=== PATIENT | female | born 1960 | race Caucasian/White ===

== ENCOUNTER 2017-06-08 18:59 | Emergency (ER) | payer OTHER ==
--- NOTE | 2017-06-08 19:34 | UC ---
Laceration HPI - HPI Summary HPI Summary: complaint of laceration on left index finger that occurred this evening was using garden bryon when she cut herself UTD on tetanus within 2 years - History Of Current Complaint Chief Complaint: UCLaceration Stated Complaint: LACERATION LEFT INDEX FINGER Time Seen by Provider: 06/08/17 19:28 Hx Obtained From: Patient - Allergies/Home Medications Allergies/Adverse Reactions: Allergies Allergy/AdvReac Type Severity Reaction Status Date / Time Sulfa Antibiotics Allergy Hives Verified 02/05/16 15:22 smoke Allergy Coughing Uncoded 06/08/17 19:12 Home Medications: Home Medications Ibuprofen TAB* [Motrin TAB* 600 MG] 600 mg PO Q12H PRN 06/08/17 [History Confirmed 06/08/17] Levothyroxine TAB* [Synthroid 137 MCG TAB*] 137 mcg PO DAILY 06/08/17 [History Confirmed 06/08/17] PMH/Surg Hx/FS Hx/Imm Hx Previously Healthy: Yes Endocrine History: Hypothyroidism - Surgical History Surgical History: Yes Surgery Procedure, Year, and Place: HERNIA REPAIR, T&A, RT FOOT BUNION REMOVAL, RT KNEE ARTHROSCOPY - Family History Known Family History: Negative: Cardiac Disease, Hypertension, Diabetes - Social History Occupation: Employed Full-time Lives: With Family Alcohol Use: Rare Substance Use Type: None Smoking Status (MU): Never Smoked Tobacco - Immunization History Most Recent Tetanus Shot: UTD, last may have been 2014 Review of Systems Constitutional: Negative Skin: Other - laceration Eyes: Negative ENT: Negative Respiratory: Negative Cardiovascular: Negative Gastrointestinal: Negative Genitourinary: Negative Motor: Negative Neurovascular: Negative Musculoskeletal: Negative Neurological: Negative Psychological: Negative All Other Systems Reviewed And Are Negative: Yes Physical Exam Triage Information Reviewed: Yes Appearance: No Pain Distress, Well-Nourished Vital Signs: Initial Vital Signs Temp 98.3 F 06/08/17 19:06 Pulse 60 06/08/17 19:06 Resp 18 06/08/17 19:06 BP 107/75 06/08/17 19:06 Vital Signs Reviewed: Yes Eyes: Positive: Conjunctiva Clear ENT: Positive: Pharynx normal, TMs normal Neck: Positive: No Lymphadenopathy Respiratory: Positive: Lungs clear, Normal breath sounds, No respiratory distress, No accessory muscle use Cardiovascular: Positive: RRR, No Murmur, Pulses Normal Musculoskeletal Exam: Normal Neurological: Positive: Alert Psychological Exam: Normal Skin Exam: Other - left index finger with laceration near tip of finger Laceration Repair - Laceration Repair 1 Description: Linear Laceration Size After Repair: Length (cm) - 5mm, Width (mm) - 1, Depth (mm) - 1 Modified For Repair: No Cleansing Completed Via Routine Prep: Yes Closure Material: SteriStrips Laceration Course/Dx - Differential Dx - Laceration/Wound Differental Diagnoses: Laceration Provider Diagnoses: laceration- left index finger Discharge - Discharge Plan Condition: Stable Disposition: HOME Prescriptions: Cephalexin CAP* [Keflex CAP*] 500 mg PO TID #21 cap Patient Education Materials: Kayleen (ED) Referrals: Uche Montejo NP [Primary Care Provider] - Additional Instructions: keep steri-strips in place until they fall off keep your finger clean and dry start antibiotic as directed Take acetaminophen or ibuprofen for fever or pain Please review your discharge instructions. If your symptoms do not improve please call your primary care provider or return to urgent care.
[2017-06-08 19:59] VITALS: BP 107/75
== END 2017-06-08 20:02 | disposition home or self-care (01) ==
LOC: UCCORT 18:59
DX: S61.211A Laceration without foreign body of left index finger without damage to nail, initial encounter (principal); W27.1XXA Contact with garden tool, initial encounter; Y93.9 Activity, unspecified; Y92.9 Unspecified place or not applicable; E03.9 Hypothyroidism, unspecified; Z88.2 Allergy status to sulfonamides
CPT/HCPCS: 99212; G0463

== ENCOUNTER 2019-02-18 05:42 | Day surgery (SDC) | payer OTHER ==
[~2019-02-18 05:42] MED LIST: Buffered Lidocaine 1% SYRIN* 1 ML/SYRINGE INTRADERM ONE
[2019-02-18] MEDS ORDERED: Lactated Ringers 1000 ML Bag* 1,000 ML IV SCH (06:00)
[2019-02-18] MEDS ORDERED: Famotidine IV* 10 MG/ML 2 ML (20 mg) IV ONE (06:00)
[2019-02-18] MEDS ORDERED: Bupivacaine 0.5%* 50 ML VIAL ONE (06:40)
[2019-02-18] MEDS ORDERED: ceFAZolin 2 GM in NS PREMIX(*) 2 GM/100 ML BAG IVPB ONE (06:45)
[2019-02-18] MEDS ORDERED: Famotidine IV* 10 MG/ML 2 ML (20 mg) ONE (06:45)
[2019-02-18] MEDS ORDERED: Ondansetron INJ* 2 MG/ML VIAL ONE (07:21)
[2019-02-18] MEDS ORDERED: Cisatracurium* 2 MG/ML MDV 5 ML ONE (07:21)
[2019-02-18] MEDS ORDERED: Dexamethasone IV* 4 MG/ML 1 ML (4 MG) ONE (07:21)
[2019-02-18] MEDS ORDERED: Propofol* 10 MG/ML 20 ML BTL ONE (07:21)
[2019-02-18] MEDS ORDERED: Lidocaine 2% PF * 5 ML VIAL ONE (07:21)
[2019-02-18] MEDS ORDERED: Ketorolac INJ* 30 MG/ML 1 ML VIAL ONE (07:21)
[2019-02-18] MEDS ORDERED: fentaNYL* 50 MCG/ML 2 ML VIAL (100 MCG VIAL) ONE (07:21)
[2019-02-18] MEDS ORDERED: Midazolam* 1 MG/ML 5 ML VIAL (5 MG) ONE (07:22)
[2019-02-18 07:32] LABS: Albumin/Globulin Ratio 1.9 (1-3); Globulin 2.1 g/dL (2-4); Indirect Bilirubin 0.4 mg/dL (0.3-1.0); Potassium 3.9 mmol/L (3.5-5.0); Total Bilirubin 0.5 mg/dL (0.2-1.0); Total Protein 6.1 g/dL (6.4-8.9)
[2019-02-18] MEDS ORDERED: EPHEDrine (Pressors)* 50 MG/ML VIAL ONE (07:58)
[2019-02-18] MEDS ORDERED: Ondansetron ODT TAB* 4 MG PO PRN (08:41)
[2019-02-18] MEDS ORDERED: DiMENhydriNATE IV* 50 MG/ML VIAL IV PUSH PRN (08:41)
[2019-02-18] MEDS ORDERED: fentaNYL* 50 MCG/ML 2 ML VIAL (100 MCG VIAL) IV PRN (08:41)
[2019-02-18] MEDS ORDERED: Naloxone* 0.4 MG/ML 1 ML VIAL IV PRN (08:41)
[2019-02-18] MEDS ORDERED: Neostigmine Methylsulfate* 1 MG/ML 10 ML VIAL (1 mg/ml) ONE (08:50)
[2019-02-18] MEDS ORDERED: Glycopyrrolate IV* 0.2 MG/ML 1 ML VIAL ONE (08:50)
[2019-02-18 10:49] VITALS: BP 99/62
--- NOTE | 2019-02-18 12:47 | OP ---
DATE OF OPERATION: 02/18/19 - [facility] DATE OF : 56 SURGEON: Mitchel Troy MD PRODUCTION CHECKER: Ban Murphy NP PRE-OP DIAGNOSIS: Left inguinal hernia. POST-OP DIAGNOSIS: Left inguinal hernia. OPERATIVE PROCEDURE: Laparoscopic left inguinal hernia, total extraperitoneal repair. INDICATIONS FOR PROCEDURE: Left inguinal hernia. Risks including, but not limited to bleeding, infection; injury to intraabdominal contents including the bowel, bladder, pelvic, nerves, vessels; recurrence of the hernia and others were explained to the patient who seemed to understand and agreed to the procedure. All questions were answered. DESCRIPTION OF PROCEDURE: The patient was taken to the operating room, placed supine. Preoperative antibiotics were given. After the successful induction of general endotracheal anesthesia, the abdomen was prepped and draped in sterile fashion. A time-out was performed, indicating correct patient and correct procedure. She was marked on her abdomen. Skin below the umbilicus was anesthetized with 0.5% Marcaine plain. An incision was made and carried down through the subcutaneous tissue exposing the anterior rectus fascia. A small incision was made exposing the rectus and the rectus was retracted laterally on the left. Posterior fascia was identified. A balloon dissector was placed, then along this tract towards the pubis, insufflated, opening up the preperitoneal space. A cannula was placed into the balloon as this was insufflated and good dissection was noted as the balloon was insufflated. There was no bleeding. Trocar was replaced through this incision, 12 mm and then two 5 mm midline trocars were placed in between this point and the pubis. This was after the balloon was removed. The balloon had done majority of this dissection, peritoneum easily came down exposing the hernia. A piece of ProGrip mesh was then passed through the 12 trocar and placed over the hernia site, across the midline and covering this superiorly and inferiorly. Once the mesh was noted to be in good position, the CO2 was released from the preperitoneal space. The midline fascia, anterior rectus was then reapproximated with an 0-Vicryl suture. The subcutaneous fascia was closed with Vicryl suture and the skin was closed with Monocryl and glue at all skin sites. The patient tolerated the procedure well, she was extubated and taken to recovery room in stable condition. [id number]/[facility] #: [id number] JOVANNY
== END 2019-02-18 10:57 | disposition home or self-care (01) ==
LOC: OR 05:42
PROVIDERS: ATTEND Surgery
DX: K40.90 Unilateral inguinal hernia, without obstruction or gangrene, not specified as recurrent (principal); E03.9 Hypothyroidism, unspecified; E67.3 Hypervitaminosis D; M81.0 Age-related osteoporosis without current pathological fracture; E88.01 Alpha-1-antitrypsin deficiency
CPT/HCPCS: 36415; 80076; 84132; C1781; J0690; J1100; J1885; J2250; J2405; J2704; J2710; J3010

== ENCOUNTER 2019-10-21 14:21 | Emergency (ER) | payer SELFPAY ==
--- OUTSIDE RECORDS SUMMARY | 2019-10-21 14:43 | XMS REPORT | Continuity of Care Document ---
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 Onset: 06/16/2017 Seasonal allergic rhinitis Uche Montejo, N.PJeremias Onset: 02/11/2019 Social History Type Date Description Comments Sex Unknown Tobacco Use Start: Unknown Never Smoked Cigarettes Tobacco Use Start: Unknown Patient has never smoked Smoking Status Reviewed: 02/15/19 Patient has never smoked Enjoy Exercising Enjoys Exercising Allergies, Adverse Reactions, Alerts Active Allergies Reaction Severity Comments Date Bactrim 06/08/2005 Fluconazole rash 09/13/2013 Demerol 08/17/2015 Inactive Allergies NKDA Medications Active Medications SIG Qnty Indications Ordering Provider Date Multi Vitamin Uche Montejo, 02/11/2019 Tablets N.P. Albuterol Sulfate HFA 2 puffs four 18gm Uche Montejo, 01/21/2019 times a day as N.P. 108(90Base) mcg/Act needed for wheeze Aerosol and cough Loratadine take one tablet 30tabs Uche Montejo, 10/10/2017 10mg Tablets by mouth every N.P. morning Spiriva Respimat 2 puffs every day 4gm Uche Montejo, 07/11/2017 N.P. 1.25mcg/Act Aerosol Synthroid take one tablet 90tabs Uche Montejo, 02/17/2014 137mcg by mouth every N.P. Tablets day on an empty stomach Foltia Lara, 08/07/2008 Tablets MD John Immunizations CPT Code Status Date Vaccine Reaction Lot # [id number] Given 08/01/2019 Influenza Vac, Quadrivalent, Split, 0.5mL Dosage, Im Use 46913 Given 08/01/2019 Influenza Vac, Quadrivalent, [id number] Split, 0.5mL Dosage, Im Use 93099 Given 07/31/2018 Influenza Vac, Quadrivalent, [id number] Split, 0.5mL Dosage, Im Use 53376 Given 07/18/2017 Influenza Vac, Quadrivalent, [id number] Split, 0.5mL Dosage, [place] Use 50777 Given 07/26/2016 Influenza Vac, Quadrivalent, COUNSELING ALL [id number] Split, 0.5mL Dosage, Im Use COMPONENTS COMPLETED 56615 Given 01/15/2016 Tdap (Adacel) Ages 7 And [id number] Above Only 35599 Given 08/06/2015 Influenza Vac, Quadrivalent, [id number] Split, 0.5mL Dosage, Im Use 53316 Given 02/09/2015 Hepatitis B Vaccine Adult [id number] Dosage 65116 Given 09/11/2014 Hepatitis B Vaccine Adult [id number] Dosage 39625 Given 08/11/2014 Hepatitis B Vaccine Adult [id number] Dosage 28353 Given 07/31/2014 Afluria Or Fluvirin Flu Vac [id number] Intramuscular Q2038 Given 08/06/2013 Fluzone Trivalent [id number] Immunization Q2038 Given 07/31/2012 Fluzone Trivalent [id number] Immunization Q2038 Given 08/09/2011 Fluzone Trivalent [id number] Immunization 76972 Given 08/09/2011 Pneumococcal 23 Immunization [id number] Adult Or Immunosuppressed Patient 77421 Given 08/03/2010 Afluria Or Fluvirin Flu Vac [id number] Intramuscular 30503 Given 11/18/2009 Influenza Virus Vaccine [id number] Pandemic Formulation - [id number] 40028 Given 11/18/2009 Administration Swine Flu Vaccine [id number] 46405 Given 07/28/2009 Afluria Or Fluvirin Flu Vac [id number] Intramuscular 02328 Given 08/18/2008 Afluria Or Fluvirin Flu Vac [id number] Intramuscular 32282 Given 09/10/2007 Afluria Or Fluvirin Flu Vac Intramuscular 48697 Given 09/10/2007 Afluria Or Fluvirin Flu Vac [id number] Intramuscular 20932 Given 08/16/2006 Pneumococcal 23 Immunization [id number] Adult Or Immunosuppressed Patient 43493 Given 08/16/2006 Tetanus And Diptheria Toxoid [id number] 7 Years And Older Preserv Free 41199 Given 08/16/2006 Afluria Or Fluvirin Flu Vac Intramuscular Vital Signs Date Vital Result Comment 09/09/2019 1:28pm Body Temperature 97.7 F Weight 143.00 lb Heart Rate 59 /min BP Systolic 110 mmHg BP Diastolic 70 mmHg O2 % BldC Oximetry 95 % 02/11/2019 2:54pm Body Temperature 98.1 F Weight 142.00 lb Heart Rate 61 /min BP Systolic 100 mmHg BP Diastolic 72 mmHg O2 % BldC Oximetry 98 % Results Description No Information Available Procedures Date Code Description Status 05/23/2019 [id number] Mammogram Completed 04/13/2017 [id number] Bone Mineral Density Test Completed 11/23/2015 [id number] Mammogram Completed 03/03/2009 [id number] Colonoscopy Completed Medical Devices Description No Information Available Encounters Description No Information Available Assessments Date Code Description Provider 09/09/2019 S10.86xA Insect bite of other specified part of Uche Montejo , N.PJeremias neck, initial encounter 08/01/2019 Z23 Encounter for immunization Uche Montejo N.P. 08/01/2019 Z23 Encounter for immunization Uche Montejo N.P. 08/01/2019 Z23 Encounter for immunization Nurses Schedule Villanueva Plan of Treatment 09/09/2019 - Uche Montejo, N.P.S10.86xA Insect bite of other specified part of neck, initial encounterComments:explained to patient that no prophylatic antibiotic needed for tick bite of 2-3h durationhowever, she agrees to monitor for Lyme symps as dicsussed and report them SAVANNA Functional Status Description No Information Available Mental Status Description No Information Available Referrals Description No Information Available
[2019-10-21 14:50] VITALS: BP 114/93
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
== END 2019-10-21 15:57 | disposition home or self-care (01) ==
LOC: UCCORT 14:21
DX: M54.5 Low back pain (principal); M43.8X4 Other specified deforming dorsopathies, thoracic region; M85.88 Other specified disorders of bone density and structure, other site; M12.88 Other specific arthropathies, not elsewhere classified, other specified site; Z91.09 Other allergy status, other than to drugs and biological substances; Z91.018 Allergy to other foods; Z91.040 Latex allergy status; Z88.2 Allergy status to sulfonamides; Z88.5 Allergy status to narcotic agent; Z88.1 Allergy status to other antibiotic agents
CPT/HCPCS: 72100; 99211; G0463

== ENCOUNTER 2019-10-25 09:03 | Emergency (ER) | payer OTHER ==
--- NOTE | 2019-10-25 09:27 | ED ---
GI/ HPI - HPI Summary HPI Summary: 58 year old female presents with back pain for the past 4 days. She states she fell and landed on her back. She states that she has left-sided back pain. Denies any loss of bowel or bladder. She admits to nausea but no vomiting. She has not been passing gas. She has not had a bowel movement in 4 days. She denies any hematuria or urinary symptoms. No fevers. She denies any saddle anesthesia. She denies any numbness or tingling. States it feels better when she ambulates. She also has been having abdominal pain in lower abd. Has had a hernia repair. Has history of thyroid issues. - History of Current Complaint Chief Complaint: EDBackInjuryPain Time Seen by Provider: 10/25/19 09:09 Stated Complaint: POSS BOWEL BLOCKAGE/BACK PAIN PER PT Pain Intensity: 5 - Allergy/Home Medications Allergies/Adverse Reactions: Allergies Allergy/AdvReac Type Severity Reaction Status Date / Time meperidine [From Demerol] Allergy Severe Vomiting Verified 10/25/19 09:06 mupirocin Allergy Severe Rash And Verified 10/25/19 09:06 Itching Sulfa (Sulfonamide Allergy Severe Hives Verified 10/25/19 09:06 Antibiotics) latex Allergy Intermediate Itching Verified 10/25/19 09:06 walnut Allergy GI Upset Verified 10/25/19 09:06 smoke Allergy Coughing Uncoded 10/25/19 09:06 Home Medications: Home Medications Acetaminophen TAB* [Tylenol TAB*] 325 mg PO Q4H PRN 10/25/19 [History Confirmed 10/25/19] Ascorbic Acid TAB* [Vitamin C TAB*] 500 mg PO DAILY 10/25/19 [History Confirmed 10/25/19] Cholecalciferol TAB* [Vitamin D TAB*] 1,000 unit PO DAILY 10/25/19 [History Confirmed 10/25/19] Ibuprofen TAB* [Advil TAB*] 200 mg PO Q6H PRN 10/25/19 [History Confirmed ] Ibuprofen TAB* [Motrin TAB* 400 MG] 400 mg PO Q6H PRN 10/25/19 [History Confirmed 10/25/19] Vitamin B Complex CAP* [B Complex CAP*] 1 cap PO DAILY 10/25/19 [History Confirmed 10/25/19] PMH/Surg Hx/FS Hx/Imm Hx Endocrine/Hematology History: Reports: Hx Thyroid Disease - Hypothyroidism Denies: Hx Diabetes Cardiovascular History: Denies: Hx Hypertension, Hx Pacemaker/ICD, Other Cardiovascular Problems/ Disorders Respiratory History: Reports: Other Respiratory Problems/Disorders - Alpha 1 antitrypsin Denies: Hx Asthma GI History: Denies: Other GI Disorders History: Denies: Other Problems/Disorders Musculoskeletal History: Reports: Hx Arthritis - left knee possible, Other Musculoskeletal History - Left inguinal hernia, hx of right hernia repair, PT for left knee Sensory History: Reports: Hx Contacts or Glasses - Glasses Denies: Hx Hearing Aid Opthamlomology History: Reports: Hx Contacts or Glasses - Glasses Neurological History: Denies: Other Neuro Impairments/Disorders Psychiatric History: Denies: Hx Panic Disorder - Cancer History Hx Chemotherapy: No Hx Radiation Therapy: No - Surgical History Surgery Procedure, Year, and Place: HERNIA REPAIR, T&A, RT FOOT BUNION REMOVAL, RT KNEE ARTHROSCOPY. Colonoscopy Hx Anesthesia Reactions: Yes - Demerol - severe nausea and vomiting Infectious Disease History: No Infectious Disease History: Denies: Traveled Outside the [place] in Last 30 Days - Family History Known Family History: Negative: Cardiac Disease, Hypertension, Diabetes - Social History Alcohol Use: Rare Substance Use Type: Reports: None Smoking Status (MU): Never Smoked Tobacco Review of Systems Negative: Fever Negative: Chest Pain Negative: Shortness Of Breath Positive: Abdominal Pain, Nausea. Negative: Vomiting, Diarrhea Positive: Myalgia - back pain All Other Systems Reviewed And Are Negative: Yes Physical Exam Triage Information Reviewed: Yes Vital Signs On Initial Exam: Initial Vitals Temp Pulse Resp BP Pulse Ox 97.7 F 68 15 121/80 99 10/25/19 09:06 10/25/19 09:06 10/25/19 09:06 10/25/19 09:06 10/25/19 09:06 Vital Signs Reviewed: Yes Appearance: Positive: Well-Appearing Skin: Positive: Warm, Dry Head/Face: Positive: Normal Head/Face Inspection Eyes: Positive: Normal, Conjunctiva Clear ENT: Positive: Pharynx normal Respiratory/Lung Sounds: Positive: Clear to Auscultation, Breath Sounds Present Cardiovascular: Positive: Normal, RRR Abdomen Description: Positive: Soft, Other: - tenderness in lower abd Bowel Sounds: Positive: Present Musculoskeletal: Positive: Other - tenderness lower back, neg SLR, good pulses, sensation grossly intact Neurological: Positive: Normal, Normal Gait Psychiatric: Positive: Normal Procedures - Sedation Patient Received Moderate/Deep Sedation with Procedure: No Diagnostics - Vital Signs Vital Signs Temp Pulse Resp BP Pulse Ox 10/25/19 09:06 97.7 F 68 15 121/80 99 - Laboratory Result Diagrams: 10/25/19 09:30 10/25/19 09:30 Lab Statement: Any lab studies that have been ordered have been reviewed, and results considered in the medical decision making process. - CT abd CT Interpretation Completed By: Radiologist Summary of CT Findings: IMPRESSION: 1. AGE-INDETERMINATE COMPRESSION FRACTURE OF T12 WITHOUT OSSEOUS RETROPULSION NOTED ON THE RADIOGRAPH OF OCTOBER 21, 2019. 2. LARGE AMOUNT OF STOOL THROUGHOUT THE COLON.. Re-Evaluation - Re-Evaluation First Eval Re-Evaluation Time: 10:39 Comment: discussed lab results, appear comfortable GIGU Course/Dx - Course Course Of Treatment: 58 year old female presents with back pain for the past 4 days. She states she fell and landed on her back. She states that she has left -sided back pain. Denies any loss of bowel or bladder. She admits to nausea but no vomiting. She has not been passing gas. She has not had a bowel movement in 4 days. She denies any hematuria or urinary symptoms. No fevers. She denies any saddle anesthesia. She denies any numbness or tingling. States it feels better when she ambulates. She also has been having abdominal pain in lower abd. Has had a hernia repair. Has history of thyroid issues. On exam has tenderness in lower abdomen. Tenderness over left lower back. Had x- rays urgent care that showed no fracture. wbc normal. crp elevated. CT shows constipation. will treat with miralax. told take tyenlol for back pain. told follow up with primary. patient understand and agrees with plan. - Diagnoses Differential Diagnoses - Female: Bowel Obstruction, Other - strain, fracture Provider Diagnoses: Back pain, Constipation Discharge ED - Sign-Out/Discharge Documenting (check all that apply): Patient Departure - Discharge Plan Condition: Good Disposition: HOME Prescriptions: Polyethylene Glycol 3350* [Miralax*] 17 gm PO DAILY #14 packet Patient Education Materials: Constipation (ED), Back Pain (ED) Referrals: Uche Montejo NP [Primary Care Provider] - Additional Instructions: take tyenlol every 6 hours for pain apply heat/ice take miralax packet in 8 ounce of liquid daily increase fiber intake follow up with primary within 5 days Return to ED if develop any new or worsening symptoms - Billing Disposition and Condition Condition: GOOD Disposition: Home - Attestation Statements Provider Attestation: I was available for consult. This patient was seen by the YESENIA. The patient was not presented to, seen by, or examined by me. Marty Berger MD
[2019-10-25 09:45] LABS: ABS Eosinophils 0.1 10^3/ul (0-0.6); ABS Lymphocytes 0.9 10^3/ul (1.0-4.8); ABS Monocytes 0.6 10^3/ul (0-0.8); Eosinophil % 2.5 %; Hematocrit 43 % (35-47); Hemoglobin 14.7 g/dL (12.0-16.0); Mean Corpuscular HGB Conc 34 g/dL (31-36); Mean Corpuscular Hemoglobin 33 pg (27-31); Mean Corpuscular Volume 96 fL (80-97); Mean Platelet Volume 7.7 fL (7.4-10.4); Platelet Count 204 10^3/uL (150-450); Red Blood Count 4.52 10^6 /uL (3.70-4.87); Red Cell Distribution Width 13 % (10-15); White Blood Count 5.7 10^3/uL (3.5-10.8)
[2019-10-25 10:00] LABS: ALT 22 U/L (7-52); AST 24 U/L (13-39); Albumin 4.3 g/dL (3.2-5.2); Albumin/Globulin Ratio 1.6 (1-3); Alkaline Phosphatase 47 U/L (34-104); Anion Gap 9 mmol/L (2-11); BUN/Creatinine Ratio 14.5 (8-20); Blood Urea Nitrogen 12 mg/dL (6-24); CO2 Carbon Dioxide 26 mmol/L (22-32); Calcium 9.7 mg/dL (8.6-10.3); Chloride 98 mmol/L (101-111); EGFR African American 84.8 (>60); EGFR Non-African American 70.1 (>60); Globulin 2.7 g/dL (2-4); Glucose 99 mg/dL (70-100); Potassium 3.5 mmol/L (3.5-5.0); Sodium 133 mmol/L (135-145)
[2019-10-25 10:11] LABS: Urine Appearance Clear; Urine Bilirubin Negative (Negative); Urine Blood Negative (Negative); Urine Color Yellow; Urine Glucose Negative (Negative); Urine Ketones Trace (Negative); Urine Nitrite Negative (Negative); Urine Protein Negative (Negative); Urine Specific Gravity 1.011 (1.010-1.030); Urine Urobilinogen Negative (Negative)
[2019-10-25] MEDS: Ketorolac INJ* 30 MG/ML 1 ML VIAL IV PUSH ONE (10:41)
[2019-10-25] MEDS: Iohexol 300* (CONTRAST) 10 ML SDV IV ONE (11:22)
[2019-10-25 12:51] VITALS: BP 106/73
== END 2019-10-25 12:42 | disposition home or self-care (01) ==
LOC: ED 09:03
DX: M54.9 Dorsalgia, unspecified (principal); K59.00 Constipation, unspecified; W19.XXXA Unspecified fall, initial encounter; Y92.9 Unspecified place or not applicable; E03.9 Hypothyroidism, unspecified; Z79.899 Other long term (current) drug therapy; Z88.5 Allergy status to narcotic agent; Z88.2 Allergy status to sulfonamides; Z88.1 Allergy status to other antibiotic agents; Z91.040 Latex allergy status
CPT/HCPCS: 36415; 74177; 80053; 81003; 83690; 85025; 86140; 96374; 99282; J1885; Q9967